=== PATIENT | female | born 1955 | race Caucasian/White ===

== ENCOUNTER 2016-08-14 11:44 | Day surgery (SDC) | payer OTHER ==
[2016-08-10 10:18] VITALS: BMI 34.3
[~2016-08-14 11:44] MED LIST: LACTATED RINGERS 1,000 ML IV SCH
[2016-08-14 12:31] VITALS: RESP 16; TEMP 97
[2016-08-14] MEDS ORDERED: LIDOCAINE 1% 20 ML VIAL (10MG/ML) FOR IV START INTRADERMA ONE (12:41)
[2016-08-14] MEDS ORDERED: PROPOFOL 10 MG/ML 20 ML VIAL IV ONE (13:24)
--- NOTE | 2016-08-14 13:56 | P.PCN ---
Date of Procedure: 08/14/16 Procedure(s) Performed: Procedure: 1. Esophagogastroduodenoscopy and biopsy. 2. Total colonoscopy. Preoperative diagnosis: Epigastric pain, history of polyps and change in bowel habits. Postoperative diagnosis: 1. Sliding hiatal hernia with no obvious esophagitis or complicated reflux disease. 2. Mild gastritis and duodenitis. 3. Sigmoid diverticulosis with no evidence of acute diverticulitis, strictures, polyps or cancer. Preparation: HalfLytely prep. Sedation: Was provided by anesthesia. Brief clinical history: The patient is a 60-year-old female who was evaluated in the office regarding chronic epigastric pain. She had history of ulcer and hiatal hernia in the past and had prior cholecystectomy in 2008. There is also history of polyps and the last colonoscopy was 3 years ago. The patient has been having alternating bowel movements for the last couple years. Procedure: With the patient on her left lateral decubitus position and after informed consent and adequate sedation, I passed the Olympus-GIF 160 video upper endoscope through the cricopharyngeus down the esophagus. GE junction was around 38 cm from the incisors and there was a 1-2 cm sliding hiatal hernia. The esophagus did not show any obvious erosions, ulcers, strictures or Delacruz's esophagus. The endoscope was then passed into the stomach which was insufflated with air and inspected in detail including the retroflex view in the cardia. There was some mottling and erythema in the antrum but no ulcers or erosions. Pyloric channel did not show any ulcers. Duodenal bulb showed erythema and friability but no ulcers or erosions. Similar findings were seen in the post bulbar area and descending duodenum. I obtained multiple biopsies from the duodenum, antrum and esophagus then the endoscope was withdrawn and I proceeded with the colonoscopy. Perianal area did not show any fissures or fistulas. There were no masses felt on digital rectal examination. The Olympus CFQ 160L video colonoscope was then inserted in the rectum in the usual fashion and advanced to the cecum. There were multiple diverticular orifices seen scattered in the sigmoid but I saw no evidence of acute diverticulitis or strictures. No polyps or tumors were seen. The mucosa appeared healthy. I retroflexed endoscope in the rectum before the endoscope was withdrawn. The patient tolerated the procedure well. Plan: The patient was reassured. Will await biopsy results and make further plans accordingly. With her history of polyps, I recommended repeat exam in 5 years. She will follow-up with you as planned.
[2016-08-14 14:38] VITALS: BP 112/68; PULSE 59
== END 2016-08-14 14:46 | disposition home or self-care (01) ==
LOC: ORWHC2ENDO 11:44
DX: K29.50 Unspecified chronic gastritis without bleeding (principal); K44.9 Diaphragmatic hernia without obstruction or gangrene; K57.30 Diverticulosis of large intestine without perforation or abscess without bleeding; K21.0 Gastro-esophageal reflux disease with esophagitis; K29.80 Duodenitis without bleeding; Z86.010 Personal history of colon polyps; I10 Essential (primary) hypertension; F32.9 Major depressive disorder, single episode, unspecified; Z79.899 Other long term (current) drug therapy; Z88.8 Allergy status to other drugs, medicaments and biological substances; Z86.73 Personal history of transient ischemic attack (TIA), and cerebral infarction without residual deficits
CPT/HCPCS: 88305; 88342; 45378; 43239; J2704; 99153

== ENCOUNTER → 2016-11-23 | Outpatient (CLI) | payer OTHER ==
--- NOTE | 2016-11-24 10:36 | US ---
EXAMINATION TYPE: Ultrasound MSK right foot DATE OF EXAM: 11/23/2016 COMPARISON: NONE CLINICAL HISTORY: 61-year-old female soft Tissue Mass Right Foot M77.91. Additional mobile engineer history: Patient states palpable mass on sole of rt foot x 2-3 yrs, never had looked at, first time at dr's for this, not really tender, but after dr pressing on has been more ten moshe. Technique: Multiple sonographic images along the plantar aspect of the right foot with particular att ention to the palpable site. FINDINGS: Along the plantar aspect of the right foot just proximal to the ball of the foot, there is an elongat ed, hypoechoic, ovoid lesion measuring 1.8 cm long by 0.3 cm thick by 1.5 cm wide. This elongates franchesca ng the plantar fascia. The plantar fascia is followed to the calcaneal attachment. No additional nodu larity is seen. The underlying musculature shows no gross abnormality. IMPRESSION: Focal fusiform thickening of the plantar fascia just proximal to the ball of the foot measuring 1.8 c m long and 1.5 cm wide. Findings suggest a plantar fibroma. Clinical correlation recommended.
== END | disposition home or self-care (01) ==
LOC: RADUSWWP 10:15
PROVIDERS: ATTEND Podiatrist Foot & Ankle Surgery
DX: R93.7 Abnormal findings on diagnostic imaging of other parts of musculoskeletal system (principal); R22.41 Localized swelling, mass and lump, right lower limb

== ENCOUNTER 2016-12-09 14:16 | Emergency (ER) | payer OTHER ==
[2016-12-09 14:23] VITALS: PULSE 66
--- NOTE | 2016-12-09 15:21 | ED ---
Skin/Abscess/FB HPI - General Chief complaint: Skin/Abscess/Foreign Body Stated complaint: Female -sent by [employer] Source: patient Mode of arrival: ambulatory Limitations: no limitations - History of Present Illness Initial comments: 7-year-old female presented for evaluation of pain and swelling to the right labia majora for the last 3 days. She states that she has had a rash in that area during the same time and that has caused some itching. The pain is at the upper aspect of her right labia majora without fluctuance or drainage. She denies any preceding trauma or discharge. She states that she has a similar rash underneath both breasts and she has been seen by her best worker for that but has not brought up the rash on her upper thighs/groin. Denies fevers, chills, nausea, vomiting, abdominal pain. Denies any other complaints or abnormalities. - Related Data Home Medications Medication Instructions Recorded Confirmed Lisinopril [Prinivil] 20 mg PO QAM 02/09/16 12/09/16 Sertraline HCl [Zoloft] 100 mg PO HS 02/09/16 12/09/16 amLODIPine BESYLATE [Norvasc] 10 mg PO HS 02/09/16 12/09/16 Omeprazole [PriLOSEC] 20 mg PO DAILY PRN 08/10/16 12/09/16 Cholecalciferol (Vitamin D3) 2,000 unit PO DAILY 12/09/16 12/09/16 [Vitamin D3] Naproxen Sodium [Aleve] 440 mg PO Q6H PRN 12/09/16 12/09/16 Pyridoxine HCl (Vitamin B6) 100 mg PO DAILY 12/09/16 12/09/16 [Vitamin B-6] Previous Rx's Medication Instructions Recorded Clindamycin [Cleocin] 450 mg PO Q6H #60 capsule 12/09/16 Allergies Allergy/AdvReac Type Severity Reaction Status Date / Time No Known Allergies Allergy Unverified 12/09/16 14:53 Review of Systems ROS Statement: Those systems with pertinent positive or pertinent negative responses have been documented in the HPI. ROS Other: All systems not noted in ROS Statement are negative. Constitutional: Denies: fever, chills Eyes: Denies: eye pain, eye discharge, vision change ENT: Denies: ear pain, throat pain Respiratory: Denies: cough, dyspnea Cardiovascular: Denies: chest pain, palpitations Endocrine: Denies: fatigue, polydipsia, polyuria Gastrointestinal: Denies: abdominal pain, nausea, vomiting Genitourinary: Denies: urgency, dysuria Musculoskeletal: Denies: back pain, arthralgia, myalgia Skin: Reports: rash, lesions. Denies: change in color Neurological: Denies: headache, weakness Psychiatric: Denies: anxiety, depression Hematological/Lymphatic: Denies: easy bleeding, easy bruising Past Medical History Past Medical History: CVA/TIA, GERD/Reflux, Hypertension, Skin Disorder Additional Past Medical History / Comment(s): freq diarrhea ,uterine polyps History of Any Multi-Drug Resistant Organisms: None Reported Past Surgical History: Appendectomy, Cholecystectomy, Tubal Ligation Additional Past Surgical History / Comment(s): COLONOSCOPY AND EGD Past Anesthesia/Blood Transfusion Reactions: No Reported Reaction Past Psychological History: Anxiety, Depression Smoking Status: Former smoker - Past Family History Father Additional Family Medical History / Comment(s): heart aneurysm Mother Family Medical History: Liver Disease, Myocardial Infarction ([place]) General Exam Limitations: no limitations General appearance: alert, in no apparent distress Head exam: Present: atraumatic, normocephalic, normal inspection Eye exam: Present: normal appearance, PERRL, EOMI. Absent: scleral icterus, conjunctival injection, periorbital swelling ENT exam: Present: normal exam, mucous membranes moist Neck exam: Present: normal inspection. Absent: tenderness, meningismus, lymphadenopathy Respiratory exam: Present: normal lung sounds bilaterally. Absent: respiratory distress, wheezes, rales, rhonchi, stridor Cardiovascular Exam: Present: regular rate, normal rhythm, normal heart sounds. Absent: systolic murmur, diastolic murmur, rubs, gallop, clicks GI/Abdominal exam: Present: soft, normal bowel sounds. Absent: distended, tenderness, guarding, rebound, rigid Rectal exam: Present: deferred External exam: Present: erythema, swelling, lesions. Absent: lacerations, ecchymosis Extremities exam: Present: normal inspection, full ROM, normal capillary refill. Absent: tenderness, pedal edema, joint swelling, calf tenderness Back exam: Present: normal inspection Neurological exam: Present: alert, oriented X3, CN II-XII intact Psychiatric exam: Present: normal affect, normal mood Skin exam: Present: warm, dry, intact, normal color. Absent: rash Course Vital Signs 12/09/16 14:19 Temperature 97.1 F L Pulse Rate 66 Respiratory 18 Rate Blood Pressure 137/70 O2 Sat by Pulse 96 Oximetry Medical Decision Making - Medical Decision Making 61-year-old female presented for evaluation of pain to the right labia majora as well as a rash to bilateral groins. On physical examination she does appear to have a cellulitis to the right labia majora without any fluctuance or the tender area coming to a head. At this point there appears to be no indication for incision and drainage and we'll provide patient with a prescription for oral antibiotics and to follow-up with her primary care physician or her STUDY DIRECTOR, which ever one is available first. She states that she has clotrimazole cream at home for the similar rash underneath her breasts and she will continue to use that on her groins. She was advised to make appointments Sunday morning but if her symptoms should worsen or persist return to this facility for further treatment and evaluation. The patient acknowledged an understanding of this information and agreed with this plan of care. Disposition Clinical Impression: Cellulitis of labia majora, Tinea cruris Disposition: HOME SELF-CARE Condition: Stable Instructions: Abscess Incision and Drainage (ED), Jock Itch (ED), Abscess (ED) Additional Instructions: Please use medication as discussed. Please follow up with family doctor if symptoms have not improved over the next two days. Please return to the emergency room if your symptoms increase or worsen or for any other concerns. Prescriptions: Clindamycin [Cleocin] 450 mg PO Q6H #60 capsule Referrals: Maria L Ambrocio MD [Primary Care Provider] - 1-2 days Time of Disposition: 15:22
[2016-12-09 15:31] VITALS: BP 133/72; RESP 20; TEMP 97.6
== END 2016-12-09 15:31 | disposition home or self-care (01) ==
LOC: EC 14:16
DX: N76.2 Acute vulvitis (principal); B35.6 Tinea cruris; K21.9 Gastro-esophageal reflux disease without esophagitis; I10 Essential (primary) hypertension; F32.9 Major depressive disorder, single episode, unspecified; F41.9 Anxiety disorder, unspecified; Z87.891 Personal history of nicotine dependence; Z79.899 Other long term (current) drug therapy
CPT/HCPCS: 99283

== ENCOUNTER → 2018-05-17 | Outpatient (CLI) | payer OTHER ==
--- NOTE | 2018-05-17 13:44 | XR ---
EXAMINATION TYPE: XR chest 2V DATE OF EXAM: 05/17/2018 COMPARISON: 10/22/2015 TECHNIQUE: PA and lateral views submitted. HISTORY: Chronic pain FINDINGS: The lungs are clear and there is no pneumothorax, pleural effusion, or focal pneumonia. Atheroscler otic change of the aorta. Hypertrophic and degenerative change of the spine. No overt failure. IMPRESSION: 1. No acute process.
--- NOTE | 2018-05-17 13:46 | XR ---
EXAM TYPE: LUMBAR SPINE X RAY SERIES COMPARISON: NONE HISTORY: Pain TECHNIQUE: 4 views are submitted. FINDINGS: Alignment is anatomic. The pedicles are intact. The transverse processes are intact. There is no s pondylolysis or spondylolisthesis. Hypertrophic and degenerative changes of the vertebral column. Se lizz degenerative disc disease L4-5 and L5-S1 with moderate changes at L3-L4. Multilevel facet arthro sj. Atherosclerotic change of the vasculature. Surgical clips in the right upper quadrant are note d. IMPRESSION: 1. Multilevel degenerative disc disease with severe changes at L4-5 and L5-S1.
--- NOTE | 2018-05-17 13:51 | XR ---
EXAMINATION TYPE: XR thoracic spine 2V DATE OF EXAM: 05/17/2018 COMPARISON: NONE HISTORY: Pain Alignment is anatomic. There is no compression deformities. Multilevel hypertrophic and degenerative disc disease. No compression deformities. Curvature the spine noted. IMPRESSION: 1. Multilevel degenerative disc disease.
== END | disposition home or self-care (01) ==
LOC: RADXRMAIN 12:52
PROVIDERS: ATTEND Family Medicine
DX: M51.37 Other intervertebral disc degeneration, lumbosacral region (principal); M51.34 Other intervertebral disc degeneration, thoracic region; G89.29 Other chronic pain
CPT/HCPCS: 71046; 72070; 72110

== ENCOUNTER → 2019-01-23 | Outpatient (CLI) | payer OTHER ==
--- NOTE | 2019-01-23 16:12 | XR ---
Right hip and right femur HISTORY: Hip pain 2 views of the right hip and 2 views of the right femur are submitted on a total of 6 images There are some calcifications present at the level of the origins of the hamstring musculature which may be due to chronic tear. Bone mineralization is mildly reduced. Alignment and joint spaces are anibal ntained. No fracture or dislocation. Degenerative disc change incidentally noted at the lumbosacral j unction. IMPRESSION: Degenerative disc disease lumbosacral spine. No significant abnormality noted of the hip or right femur. Possible chronic hamstring musculature tear.
--- NOTE | 2019-01-23 16:18 | XR ---
Left hip and left femur HISTORY: Bilateral hip pain 2 views of the left hip and 2 views of left femur submitted on a total of 5 images. Bone mineralization slightly reduced, joint spaces and alignment are maintained. No fracture or dislo cation. IMPRESSION: No significant abnormality.
== END | disposition home or self-care (01) ==
LOC: RADXRMAIN 11:15
PROVIDERS: ATTEND Family Medicine
DX: M51.37 Other intervertebral disc degeneration, lumbosacral region (principal); M25.552 Pain in left hip; M25.551 Pain in right hip
CPT/HCPCS: 73502

== ENCOUNTER 2020-01-24 10:53 | Emergency (ER) | payer OTHER ==
[2020-01-24] MEDS ORDERED: HYDROcodone/APAP 5-325MG 1 EACH TAB PO STA (11:18)
--- NOTE | 2020-01-24 11:21 | ED ---
Fall HPI - General Chief Complaint: Fall Stated Complaint: fall, rt arm injury Time Seen by Provider: 01/24/20 11:00 Source: patient Mode of arrival: ambulatory - History of Present Illness Initial Comments: 64-year-old male presents today for chief complaint of fall patient states that she tripped falling backwards striking mostly her right arm as she attempted to catch herself she states she did hit the back of her head which she states is upper part she does not endorse any neck pain or headaches. Patient states she was worried about the head or neck she states she does not take any anticoagulation therapy and did not lose consciousness. Patient denies any nausea vomiting visual changes she has any injury to the chest abdomen back or lower extremities. Patient denies any left upper extremity injury patient states majority of her pain is at the right elbow and just distal to the elbow. Patient denies any numbness tingling loss of sensation coolness or pallor of the extremity. Patient states she is able to slightly range at the right elbow. Denies abrasions or lacerations. Patient has no additional complaints. Upon arrival patient appears uncomfortable is splinting the right arm. - Related Data Home Medications Medication Instructions Recorded Confirmed Sertraline HCl [Zoloft] 100 mg PO HS 02/09/16 12/09/16 amLODIPine BESYLATE [Norvasc] 10 mg PO HS 02/09/16 12/09/16 lisinopriL [Prinivil] 20 mg PO QAM 02/09/16 12/09/16 Omeprazole [PriLOSEC] 20 mg PO DAILY PRN 08/10/16 12/09/16 Cholecalciferol (Vitamin D3) 2,000 unit PO DAILY 12/09/16 12/09/16 [Vitamin D3] Naproxen Sodium [Aleve] 440 mg PO Q6H PRN 12/09/16 12/09/16 Pyridoxine HCl (Vitamin B6) 100 mg PO DAILY 12/09/16 12/09/16 [Vitamin B-6] Previous Rx's Medication Instructions Recorded Clindamycin [Cleocin] 450 mg PO Q6H #60 capsule 12/09/16 Allergies Allergy/AdvReac Type Severity Reaction Status Date / Time No Known Allergies Allergy Unverified 01/24/20 10:53 Review of Systems ROS Statement: Those systems with pertinent positive or pertinent negative responses have been documented in the HPI. ROS Other: All systems not noted in ROS Statement are negative. Past Medical History Past Medical History: CVA/TIA, GERD/Reflux, Hypertension, Skin Disorder Additional Past Medical History / Comment(s): freq diarrhea ,uterine polyps History of Any Multi-Drug Resistant Organisms: None Reported Past Surgical History: Appendectomy, Cholecystectomy, Tubal Ligation Additional Past Surgical History / Comment(s): COLONOSCOPY AND EGD Past Anesthesia/Blood Transfusion Reactions: No Reported Reaction Past Psychological History: Anxiety, Depression Smoking Status: Former smoker Past Alcohol Use History: None Reported Past Drug Use History: None Reported - Past Family History Father Additional Family Medical History / Comment(s): heart aneurysm Mother Family Medical History: Liver Disease, Myocardial Infarction ([place]) General Exam - General Exam Comments Initial Comments: General: The patient is awake and alert, in no distress Eye: Pupils are equal, round and reactive to light, extra-ocular movements are intact. No nystagmus. There is normal conjunctiva bilaterally. No signs of icterus. Ears, nose, mouth and throat: There are moist mucous membranes and no oral lesions. No raccoon or Sandoval sign Neck: The neck is supple, there is no tenderness or JVD. No midline tenderness to palpation of the cervical spine full range of motion cervical spine without endorsing any discomfort Cardiovascular: There is a regular rate and rhythm. No murmur, rub or gallop is appreciated. Respiratory: Lungs are clear to auscultation, respirations are non-labored, breath sounds are equal. No wheezes, stridor, rales, or rhonchi. Gastrointestinal: Soft, non-distended, non-tender abdomen without masses or organomegaly noted. There is no rebound or guarding present Musculoskeletal: Normal inspection of the cervicothoracic and lumbar spine no midline tenderness to palpation or paravertebral. Upon inspection of the elbow bilaterally there is no significant soft tissue swelling or gross deformity. No abrasions or lacerations. Patient is able to slightly range of the right elbow however this is limited secondary to pain full range of motion at the shoulder and wrist and fingers of the right hand she is able to make the okay fingers crossed thumbs-up sign no evidence of wristdrop. Compartments are soft and compressible the forearm and upper arm. Sensation intact proximal and distal to injury site Radial pulses equal bilaterally 2+. Neurological: A&O x 3. CN II-XII intact, There are no obvious motor or sensory deficits. Coordination appears grossly intact. Speech is normal. Skin: Skin is warm and dry and no rashes or lesions are noted. No scalp hematomas are appreciated Psychiatric: Cooperative, appropriate mood & affect, normal judgment. Limitations: no limitations Course Vital Signs 01/24/20 01/24/20 10:54 12:05 Temperature 97.7 F 97.3 F L Pulse Rate 79 68 Respiratory 16 18 Rate Blood Pressure 168/79 137/79 O2 Sat by Pulse 96 97 Oximetry Medical Decision Making - Medical Decision Making Imaging studies revealed a radial head fracture with a joint effusion. Patient was placed in a posterior mold splint and sling. She was neurovascular intact both prior to and after splinting with synthetic pre-padded splinting material and Jerod bandage. The splint was applied to the right upper extremity. Patient is no additional complaints denying neck pain or headaches. She be discharged with instruction to follow-up with orthopedic surgery and monitor for increasing pain or decreased sensation or strength of the hands. Patient agreeable to care plan and discharge. Imaging center personnel reviewed as well as reviewed by my attending provider Dr. Dodson Disposition Clinical Impression: Radial head fracture, Joint effusion, Fall, Right elbow pain Disposition: HOME SELF-CARE Condition: Good Instructions (If sedation given, give patient instructions): Elbow Fracture (ED) Additional Instructions: Please use medication as discussed. Please follow-up with Dr. Guevara in next week, use sling and keep splint in place. Please return to emergency room if the symptoms increase or worsen or for any other concerns. Is patient prescribed a controlled substance at d/c from ED?: No Referrals: Maria L Ambrocio MD [Primary Care Provider] - 1-2 days Hamilton Bui DO [Doctor of Osteopathic Medicine] - 1-2 days Time of Disposition: 11:47
--- NOTE | 2020-01-24 11:37 | XR ---
EXAMINATION TYPE: XR forearm RT DATE OF EXAM: 01/24/2020 COMPARISON: NONE HISTORY: Pain Two views of the forearm demonstrate fracture of the radial head extending to the articular surface w ith pathologic joint effusion. Remaining osseous structures intact. IMPRESSION: 1. Radial head fracture.
--- NOTE | 2020-01-24 11:38 | XR ---
EXAMINATION TYPE: XR elbow complete RT DATE OF EXAM: 01/24/2020 COMPARISON: NONE HISTORY: Pain FINDINGS: Three views of the elbow demonstrate a pathologic joint effusion. There is a impacted fracture of the radial head. IMPRESSION: 1. Intra-articular impacted fracture of the radial head with pathologic joint effusion.
[2020-01-24 12:05] VITALS: BP 137/79; PULSE 68; RESP 18; TEMP 97.3
== END 2020-01-24 12:08 | disposition home or self-care (01) ==
LOC: EC 10:53
DX: S52.121A Displaced fracture of head of right radius, initial encounter for closed fracture (principal); M25.40 Effusion, unspecified joint; F41.9 Anxiety disorder, unspecified; F32.9 Major depressive disorder, single episode, unspecified; I10 Essential (primary) hypertension; K21.9 Gastro-esophageal reflux disease without esophagitis; Z79.899 Other long term (current) drug therapy; Z86.73 Personal history of transient ischemic attack (TIA), and cerebral infarction without residual deficits; W01.10XA Fall on same level from slipping, tripping and stumbling with subsequent striking against unspecified object, initial encounter; Y93.K1 Activity, walking an animal; Y92.89 Other specified places as the place of occurrence of the external cause
CPT/HCPCS: 29125; 99283

== ENCOUNTER → 2020-03-09 | Outpatient (CLI) | payer OTHER ==
--- NOTE | 2020-03-09 16:30 | MR ---
EXAMINATION TYPE: MR lumbar spine wo con DATE OF EXAM: 03/09/2020 COMPARISON: Lumbar spine x-ray May 17, 2018 HISTORY: Lumbar disc disease per order. Back pain into right lower extremity per patient. TECHNIQUE: Multiplanar, multisequence imaging of the lumbar spine is performed without IV contrast. FINDINGS: Sagittal images of the lumbar spine show vertebral body heights and alignment to remain sat isfactory. Multilevel disc desiccation. Moderate to advanced disc space narrowing with heterogeneous Modic type II endplate changes L4-L5 and L5-S1 levels. [id number] multilevel anterior spurring. The conus medullaris is normal in position and signal ending at mid L1 level. Axial images show T12-L1 level to appear within normal limits. Axial images at the L1-L2 level show mild broad disc bulge minimally effacing the anterior thecal sac . Axial images at the L2-L3 level show moderate broad disc bulge with right paracentral disc protrusion component effacing the anterior thecal sac. Mild right-sided anterior inferior neural foraminal narr owing. Axial images at the L3-L4 level show mild facet degenerative changes and ligamentum flavum hypertroph y. There is mild to moderate broad-based disc bulge effacing the anterior thecal sac. There is left g reater than right foraminal disc protrusion component. There is moderate bilateral inferior neural fo raminal narrowing left more prominent than right. Axial images at the L4-L5 level show mild to moderate facet degenerative changes bilaterally. There i s mild broad-based posterior disc protrusion mildly effacing the anterior thecal sac. There is modera te to severe left-sided neural foraminal narrowing. There is mild right-sided neural foraminal narrow ing. Encroachment anterior margin left L4 nerve fell present sagittal image 2 and axial image 8. Axial images at the L5-S1 level show moderate right greater than left facet degenerative changes bila terally. There is moderate broad disc bulge with central disc protrusion component. There is mild eff acement anterior thecal sac. There is mild to moderate bilateral neural foraminal narrowing, right gr eater than left. Encroachment right L5 nerve is present sagittal image 12 and axial image 3. No suspicious retroperitoneal findings. Paraspinal muscle bulk is preserved. Sigmoid colonic divertic kilo are suspected. IMPRESSION: Multilevel degenerative changes greatest in the mid to lower lumbar spine as detailed abo ve. Suspect exiting right L5 nerve encroachment at L5-S1 level.
--- NOTE | 2020-03-09 16:35 | MR ---
EXAMINATION TYPE: MR hip RT wo con DATE OF EXAM: 03/09/2020 COMPARISON: Left hip x-ray January 23, 2019. HISTORY: Low back and right hip pain. Lumbar disc disease per order. Standard multiplanar, multisequence MRI departmental protocol Multiplanar, multisequence images of the pelvis were acquired. Imaging is performed focusing on right hip. FINDINGS: [id number] axial joint space loss of both hips is present. There are small to moderat e size symmetric bilateral hip joint effusions. No significant spurring bilaterally. Bone marrow sign al intensity is preserved. No suspicious edema. No serpiginous low T1 signal to suggest avascular nec rosis. Femoral head shapes are maintained bilaterally. Increased fluid signal over the greater trochanters bilaterally, right is more prominent than left ex tending anteriorly. No suspicious groin hernia bilaterally. No suspicious groin adenopathy. Muscle bu lk and bilateral thighs is symmetric and felt within normal limits. Diverticula throughout the sigmoid colon is confirmed. Uterus is anteverted in shape extending to rig ht of midline. Suspect 7 mm submucosal fibroid coronal image 7. No concerning pelvic fluid collection or adenopathy. IMPRESSION: Moderate degenerative changes in right hip fairly symmetric drops of left hip. Asymmetric moderate to severe right-sided greater trochanteric bursitis.
== END | disposition home or self-care (01) ==
LOC: RADMRIMAIN 14:44
PROVIDERS: ATTEND Family Medicine
DX: M47.816 Spondylosis without myelopathy or radiculopathy, lumbar region (principal); M47.817 Spondylosis without myelopathy or radiculopathy, lumbosacral region; M16.11 Unilateral primary osteoarthritis, right hip; M70.61 Trochanteric bursitis, right hip
CPT/HCPCS: 72148

== ENCOUNTER → 2020-05-19 | Outpatient (CLI) | payer OTHER ==
--- NOTE | 2020-05-19 16:03 | MR ---
EXAMINATION TYPE: MR brain wo/w con DATE OF EXAM: 05/19/2020 COMPARISON: Previous MRI brain 01/22/2012 HISTORY: Headache, lightheaded, falls. TECHNIQUE: Multiplanar, multisequence images of the brain and brainstem is performed without and with IV contras t, utilizing 9.5 mL intravenous Gadavist . FINDINGS: Diffusion weighted images demonstrate no evidence of a recent infarct or other diffusion ab normality. There is no extra-axial fluid collection. Some periventricular white matter hyperintensi ties again noted as on prior, some scattered hyperintensities within the subcortical, pericallosal an d periventricular white matter have progressed as compared to prior exam, there are 40-50 lesions pre sent. Cortical atrophy is present. The ventricular system and cisternal spaces are normal in size and appearance. The brain volume is age appropriate. Midline structures demonstrate stable morphology. The craniocervical junction appears within normal limits. Post contrast images demonstrate no abnormal enhancement. The dural venous sinuses appear pa tent. The visualized sinuses are clear and the globes are intact. IMPRESSION: Nonspecific white matter demyelination, age related atrophy
--- NOTE | 2020-05-20 09:36 | US ---
EXAMINATION TYPE: US carotid duplex BILAT DATE OF EXAM: 05/19/2020 COMPARISON: NONE CLINICAL HISTORY: R55 pre syncope. frequent falls, dizziness, headaches, history of stenosis EXAM MEASUREMENTS: RIGHT: Peak Systolic Velocity (PSV) cm/sec ----- Right CCA: 72.5 ----- Right ICA: 102.0 ----- Right ECA: 65.1 ICA/CCA ratio: 1.4 RIGHT: End Diastole cm/sec ----- Right CCA: 21.4 ----- Right ICA: 30.4 ----- Right ECA: 7.5 LEFT: Peak Systolic Velocity (PSV) cm/sec ----- Left CCA: 76.4 ----- Left ICA: 186.0 ----- Left ECA: 107.0 ICA/CCA ratio: 2.4 LEFT: End Diastole cm/sec ----- Left CCA: 19.3 ----- Left ICA: 57.5 ----- Left ECA: 9.8 VERTEBRALS (direction of flow): Right Vertebral: Antegrade Left Vertebral: Antegrade Rhythm: Normal Grayscale, color Doppler, spectral Doppler imaging performed of the carotid arteries. Waveform analys is shows hemodynamic significant stenosis of the proximal internal carotid artery on the left. There is some tortuosity present. There is spectral broadening, loss of the systolic window. Moderate plaqu e bilateral bifurcations. Increased velocities left ICA IMPRESSION: Hemodynamic significant stenosis of the proximal internal carotid artery in the left cor responding to approximately 50-69% diameter reduction by Doppler criteria, an indirect measurement of carotid stenosis Criteria for Assigning % of Stenosis / Diameter reduction (Estimation based on the indirect measurements of the internal carotid artery velocities (ICA PSV). 1. Normal (no stenosis)=ICA PSV < 125 cm/s: ratio < 2.0: ICA EDV<40 cm/s. 2. Less than 50% stenosis=ICA PSV < 125 cm/s: ratio < 2.0: ICA EDV<40 cm/s. 3. 50 to 69% stenosis=ICA PSV of 125 to 230 cm/s: ration 2.0 ? 4.0: ICA EDV 40-100 cm/s. 4. Greater than 70% stenosis to near occlusion= ICA PSV > 230 cm/s: ratio > 4.0: ICA EDV > 100 cm/s. 5. Near occlusion= ICA PSV velocities may be low or undetectable: variable ratio and ICA EDV. 6. Total occlusion=unable to detect flow.
== END | disposition home or self-care (01) ==
LOC: RADMRIMAIN 14:28
PROVIDERS: ATTEND Family Medicine
DX: G31.1 Senile degeneration of brain, not elsewhere classified (principal); G37.8 Other specified demyelinating diseases of central nervous system; I65.22 Occlusion and stenosis of left carotid artery
CPT/HCPCS: 93880; 70553; A9585

== ENCOUNTER 2020-09-10 16:25 | Emergency (ER) | payer OTHER ==
--- NOTE | 2020-09-10 16:39 | ED ---
Recheck HPI - General Chief Complaint: Recheck/Abnormal Lab/Rx Stated Complaint: COVID+ Source: patient, RN notes reviewed Mode of arrival: ambulatory Limitations: no limitations - History of Present Illness Initial Comments: Patient is a 63-year-old female that presents to emergency department with Covid. She recently tested positive on 09/10/2020. She was sent here by her [facility] to get monoclonal antibody therapy. She did state that she does have a cough headache and generalized muscle aches and pains. She denied any other complaints or issues will sitting up in bed during exam and interview. She denied any chest pain shortness of breath nausea vomiting diarrhea constipation fever fatigue chills. - Related Data Home Medications Medication Instructions Recorded Confirmed Sertraline HCl [Zoloft] 100 mg PO HS 02/09/16 12/09/16 amLODIPine BESYLATE [Norvasc] 10 mg PO HS 02/09/16 12/09/16 lisinopriL [Prinivil] 20 mg PO QAM 02/09/16 12/09/16 Omeprazole [PriLOSEC] 20 mg PO DAILY PRN 08/10/16 12/09/16 Cholecalciferol (Vitamin D3) 2,000 unit PO DAILY 12/09/16 12/09/16 [Vitamin D3] Naproxen Sodium [Aleve] 440 mg PO Q6H PRN 12/09/16 12/09/16 Pyridoxine HCl (Vitamin B6) 100 mg PO DAILY 12/09/16 12/09/16 [Vitamin B-6] Previous Rx's Medication Instructions Recorded Clindamycin [Cleocin] 450 mg PO Q6H #60 capsule 12/09/16 Allergies Allergy/AdvReac Type Severity Reaction Status Date / Time No Known Allergies Allergy Unverified 01/24/20 10:53 Review of Systems ROS Statement: Those systems with pertinent positive or pertinent negative responses have been documented in the HPI. ROS Other: All systems not noted in ROS Statement are negative. Past Medical History Past Medical History: CVA/TIA, GERD/Reflux, Hypertension, Skin Disorder Additional Past Medical History / Comment(s): freq diarrhea ,uterine polyps History of Any Multi-Drug Resistant Organisms: None Reported Past Surgical History: Appendectomy, Cholecystectomy, Tubal Ligation Additional Past Surgical History / Comment(s): COLONOSCOPY AND EGD Past Anesthesia/Blood Transfusion Reactions: No Reported Reaction Past Psychological History: Anxiety, Depression Smoking Status: Former smoker Past Alcohol Use History: None Reported Past Drug Use History: None Reported - Past Family History Father Additional Family Medical History / Comment(s): heart aneurysm Mother Family Medical History: Liver Disease, Myocardial Infarction ([place]) General Exam Limitations: no limitations General appearance: alert, in no apparent distress, obese Head exam: Present: atraumatic, normocephalic, normal inspection Eye exam: Present: normal appearance, PERRL, EOMI. Absent: scleral icterus, conjunctival injection, periorbital swelling ENT exam: Present: normal exam, mucous membranes moist Neck exam: Present: normal inspection. Absent: tenderness, meningismus, lymphadenopathy Respiratory exam: Present: normal lung sounds bilaterally. Absent: respiratory distress, wheezes, rales, rhonchi, stridor Cardiovascular Exam: Present: regular rate, normal rhythm, normal heart sounds. Absent: systolic murmur, diastolic murmur, rubs, gallop, clicks GI/Abdominal exam: Present: soft, normal bowel sounds. Absent: distended, ten derness, guarding, rebound, rigid Extremities exam: Present: normal inspection, full ROM, normal capillary refill. Absent: tenderness, pedal edema, joint swelling, calf tenderness Neurological exam: Present: alert, oriented X3, CN II-XII intact Psychiatric exam: Present: normal affect, normal mood Skin exam: Present: warm, dry, intact, normal color. Absent: rash Course Vital Signs 09/10/20 09/10/20 16:27 17:43 Temperature 98.4 F 99.2 F Pulse Rate 101 H 91 Respiratory 19 18 Rate Blood Pressure 151/83 185/84 O2 Sat by Pulse 94 L 95 Oximetry Medical Decision Making - Medical Decision Making 63-year-old female that Covid positive with 1 day of symptoms. Monoclonal antibody therapy ordered. Patient educated on risks first benefits. Chest x-ray negative for any acute cardiopulmonary process. Case discussed with Dr. Schwartz, patient can discharge home after monoclonal antibody therapy. - Radiology Data Radiology results: report reviewed, image reviewed Chest x-ray: No acute cardiopulmonary process. Disposition Clinical Impression: COVID-19 Disposition: HOME SELF-CARE Condition: Stable Instructions (If sedation given, give patient instructions): Coronavirus Disease 2019 (COVID-19) Additional Instructions: Please return to the Emergency Department if symptoms worsen or any other concerns. Follow-up with primary care in 5-7 days. Continue to rest, increase oral fluid, eat well. Can use [id number] anti-inflammatories for symptomatic management. Is patient prescribed a controlled substance at d/c from ED?: No Referrals: Maria L Ambrocio MD [Primary Care Provider] - 1-2 days Time of Disposition: 18:25
--- NOTE | 2020-09-10 17:34 | XR ---
EXAMINATION TYPE: XR chest 2V DATE OF EXAM: 09/10/2020 COMPARISON: 05/17/2018. HISTORY: Shortness of breath. TECHNIQUE: Frontal and lateral views of the chest are obtained. FINDINGS: There is no focal air space opacity, pleural effusion, or pneumothorax seen. The cardiac silhouette size is within normal limits. The osseous structures are intact. IMPRESSION: No acute cardiopulmonary process.
[2020-09-10] MEDS ORDERED: BAMLANIVIMAB 700 MG in SODIUM CHLORIDE 0.9% 50 ML IVPB ONE (18:00)
[2020-09-10 19:07] VITALS: BP 155/89; PULSE 88; RESP 20; TEMP 98.6
== END 2020-09-10 19:07 | disposition home or self-care (01) ==
LOC: EC 16:25
DX: U07.1 COVID-19 (principal); K21.9 Gastro-esophageal reflux disease without esophagitis; I10 Essential (primary) hypertension; F41.9 Anxiety disorder, unspecified; F32.9 Major depressive disorder, single episode, unspecified; Z87.891 Personal history of nicotine dependence; Z90.49 Acquired absence of other specified parts of digestive tract; Z98.890 Other specified postprocedural states; Z86.73 Personal history of transient ischemic attack (TIA), and cerebral infarction without residual deficits; Z79.899 Other long term (current) drug therapy
CPT/HCPCS: 71046; 99283; 96365; Q0239

== ENCOUNTER → 2021-02-14 | Outpatient (CLI) | payer OTHER ==
--- NOTE | 2021-02-14 09:28 | US ---
EXAMINATION TYPE: US pelvic complete DATE OF EXAM: 02/14/2021 COMPARISON: NONE CLINICAL HISTORY: N95.0 POSTMENOPAUSAL BLEEDING. Patient states having one episode of PMB. No pain. TECHNIQUE: Transabdominal (TA). Transabdominal sonographic images of the pelvis were acquired. Date of LMP: PMB, EXAM MEASUREMENTS: Uterus: 6.9 x 3.9 x 2.6 cm Endometrial Stripe: 0.2 cm Right Ovary: 1.7 x 1.5 x 1.4 cm Left Ovary: 2.4 x 1.2 x 1.2 cm 1. Uterus: Anteverted Heterogenous. Anterior mid echogenic lesion = 1.0 x 0.9 x 0.9 cm 2. Endometrium: wnl 3. Right Ovary: wnl 4. Left Ovary: wnl 5. Bilateral Adnexa: wnl 6. Posterior cul-de-sac: trace amount of free fluid IMPRESSION: Echogenic uterine lesion. Trace free fluid.
== END | disposition home or self-care (01) ==
LOC: RADUSWWP 09:01
PROVIDERS: ATTEND Family Medicine
DX: N85.9 Noninflammatory disorder of uterus, unspecified (principal)
CPT/HCPCS: 76856

== ENCOUNTER → 2021-11-22 | Outpatient (CLI) | payer MEDICARE, OTHER ==
--- NOTE | 2021-11-23 04:45 | MR ---
EXAMINATION TYPE: MR brain wo/w con DATE OF EXAM: 11/22/2021 COMPARISON: 05/19/2020 HISTORY: Dizziness, lightheadedness. CONTRAST: Standard multiplanar, multisequence MRI departmental protocol images were obtained without contrast a nd with 8.5 mL intravenous Gadavist gadolinium contrast. Ventricles have fairly normal size. There is no mass effect or midline shift. No evidence of an acute infarct on the diffusion images. No evidence of intracranial hemorrhage. On the T2 and FLAIR images there are patchy areas of increased signal in the periventricular white matter. There is more noticea ble involvement of the left internal capsule with areas that measure up to 8 mm. Total number of lesi ons is approximately 25. There is some mild increased signal in the central marisol that measures 1.8 cm. Sella turcica appears normal. No evidence of orbital mass. The cerebellum is intact. The contrast images show no pathologic enhancement. There is normal enhancement of the venous sinuses . IMPRESSION: Multiple areas of increased signal in both cerebral hemispheres as well as the brainstem could relate to demyelinating disease or microvascular ischemia and appear not significantly different than last exam. No evidence of any significant new lesion. No cortical infarct.
== END | disposition home or self-care (01) ==
LOC: RADMRIMAIN 14:31
PROVIDERS: ATTEND Family Medicine
DX: R42 Dizziness and giddiness (principal)
CPT/HCPCS: 70553; A9585

== ENCOUNTER → 2022-04-25 | Outpatient (CLI) | payer MEDICARE, OTHER ==
--- NOTE | 2022-04-25 15:01 | US ---
EXAMINATION TYPE: US abdomen complete DATE OF EXAM: 04/25/2022 COMPARISON: NONE CLINICAL HISTORY: R10.13 EPIGASTRIC PAIN. epigastric pain, cholecystectomy TECHNIQUE: Multiple sonographic images of the abdomen are obtained. FINDINGS: EXAM MEASUREMENTS: Liver Length: 16.2 cm Gallbladder Wall: Surgically absent CBD: 1.1 cm Spleen: 12.6 cm Right Kidney: 10.9 x 5.4 x 3.8 cm Left Kidney: 11.1 x 4.3 x 5.5 cm Pancreas: Obscured by bowel gas Liver: attenuating Gallbladder: Surgically absent Evidence for sonographic Pedro's sign: no CBD: wnl Spleen: wnl Right Kidney: no evidence of hydronephrosis Left Kidney: no evidence of hydronephrosis Upper IVC: wnl Abd Aorta: calcifications noted. distal upper limits of normal = 2.9cm IMPRESSION: Mild fatty infiltration of the liver.
--- NOTE | 2022-04-26 08:12 | MM ---
Reason for Exam: Screening (asymptomatic). Last mammogram was performed 2 year(s) and 2 month(s) ago. Patient History: Menarche at age 15. First Full-Term at age 17. Postmenopausal. Risk Values: Domonique 5 year model risk: 1.1%. NCI Lifetime model risk: 4.2%. Prior Study Comparison: 12/24/2008 Bilateral Screening Mammogram, [facility]. 02/23/2015 Screening Mammogram, Unknown. 03/10/2020 Bilateral Screening Mammogram, [facility]. Tissue Density: There are scattered fibroglandular densities. Findings: Analyzed By CAD. There is no suspicious group of microcalcifications or new suspicious mass in either breast. Overall Assessment: Benign, BI-RAD 2 Management: Screening Mammogram of both breasts in 1 year. A clinical breast exam by your physician is recommended on an annual basis and results should be correlated with mammographic findings. Electronically signed and approved by: Freeman Rotmhan M.D. Radiologis
== END | disposition home or self-care (01) ==
LOC: RADUSWWP 10:03
PROVIDERS: ATTEND Family Medicine
DX: Z12.31 Encounter for screening mammogram for malignant neoplasm of breast (principal); K76.0 Fatty (change of) liver, not elsewhere classified; Z78.0 Asymptomatic menopausal state
CPT/HCPCS: 76700; 77063; 77067

== ENCOUNTER → 2022-12-04 | Outpatient (CLI) | payer MEDICARE ==
--- NOTE | 2022-12-04 21:00 | MR ---
EXAMINATION TYPE: MR brain wo/w con DATE OF EXAM: 12/04/2022 4:35 PM CLINICAL INDICATION:Female, 67 years old with history of R42; PAIN IN BACK OF HEAD AND DIZZINESS COMPARISON: 05/19/2020 TECHNIQUE: Multi planar, multi sequence imaging was performed through the brain including: T1, T2, In version recovery, susceptibility weighted imaging and gradient echo imaging and Diffusion weighted im aging. The patient was then given intravenous contrast and multi planar, T1 fat-saturation images wer e obtained. IV Contrast: 9ML cc Gadavist FINDINGS: Remote left basal ganglia injury present with blooming artifact compatible with hemosiderin deposition. The lin-white junctions, ventricular system, basal cisterns appear unremarkable. Diffus ion-weighted imaging shows no evidence of restricted diffusion to suggest acute/subacute infarct. Int racranial arterial flow voids are maintained. Midline structures show no abnormality. Scattered foci of high T2 signal intensity are seen within the periventricular white matter. After administration of gadolinium, no abnormal enhancement is seen. The bone marrow signal is within normal limits. Paranasal sinuses and mastoid air cells: No significant paranasal sinus disease. Visualized orbits: Orbital contents are intact. IMPRESSION: Overall stable exam from priors. 1. No evidence of intracranial mass, acute/subacute infarct, or abnormal enhancement. 2. Remote left basal ganglia injury. Stable back to 2019. 3. Nonspecific white matter changes, likely related to small vessel ischemic disease
== END | disposition home or self-care (01) ==
LOC: RADMRIMAIN 15:37
PROVIDERS: ATTEND Family Medicine
DX: R90.82 White matter disease, unspecified (principal); R42 Dizziness and giddiness
CPT/HCPCS: 70553; A9585

== ENCOUNTER → 2023-01-24 | Outpatient (CLI) | payer MEDICARE ==
[2023-01-24 17:13] LABS: Blood Urea Nitrogen 15.6 mg/dL (9.0-27.0); Carbon Dioxide 26.7 mmol/L (21.6-31.8); Chloride 105 mmol/L (96-109); Sodium 141 mmol/L (135-145)
[2023-01-24 17:21] LABS: HCT 44.9 % (37.2-46.3); HGB 14.8 d/dL (12.0-15.0); MCH 29.6 pg (27.0-32.0); MCV 89.8 FL (80.0-97.0); Mean Platelet Volume 10.6 FL (9.5-12.2); NRBC Per 100 WBC 0 X 10*3/uL (0.00-0.01); Platelet Count 219 X 10*3/uL (140-440); RDW 13.8 % (11.5-14.5); WBC 7.19 X 10*3/uL (4.50-10.00)
== END | disposition home or self-care (01) ==
LOC: LABPAT 09:56
PROVIDERS: ATTEND Internal Medicine Interventional Cardiology
DX: Z01.812 Encounter for preprocedural laboratory examination (principal); R06.02 Shortness of breath
CPT/HCPCS: 36415; 80051; 82565; 84520; 85027

== ENCOUNTER 2023-01-31 08:32 | Day surgery (SDC) | payer MEDICARE ==
[2023-01-23 15:25] VITALS: BMI 33.7
[~2023-01-31 08:32] MED LIST changes: +ALPRAZolam 0.25 MG TAB PO PRN; +ALPRAZolam 0.5 MG TAB PO PRN; +ASPIRIN 325 MG TAB PO STA; -LACTATED RINGERS 1,000 ML IV SCH; +NITROGLYCERIN SL TABS 0.4 MG TAB SUBLINGUAL PRN
[2023-01-31] MEDS ORDERED: SODIUM CHLORIDE 0.9% 1,000 ML IV ONE (08:56)
[2023-01-31] MEDS ORDERED: VERAPAMIL 2.5 MG/ML 2 ML AMP ONE (12:28)
[2023-01-31] MEDS ORDERED: LIDOCAINE 1% INJ 10MG/ML (5 ML VIAL-PF) SQ ONE (12:44)
[2023-01-31] MEDS ORDERED: MIDAZOLAM 2 MG/2 ML VIAL IVP ONE (12:45)
[2023-01-31] MEDS ORDERED: VERAPAMIL SYRINGE (5 MG/10 ML) INTRAARTER ONE (12:46)
[2023-01-31] MEDS ORDERED: HEPARIN SODIUM 1,000 UN/ML (10ML VL) IV ONE (12:48)
[2023-01-31] MEDS ORDERED: PRASUGREL 10 MG TAB PO ONE (13:15)
[2023-01-31] MEDS: NITROGLYCERIN 1000MCG/10ML SYRINGE INTRACORON ONE ×2 (13:21→13:22)
[2023-01-31] MEDS ORDERED: IOPAMIDOL-300 100ML BTL INJ ONE (13:26)
[2023-01-31] MEDS ORDERED: NAPROXEN 250 MG TAB PO PRN (13:37)
[2023-01-31] MEDS ORDERED: ATROPINE SULFATE 0.1 MG/ML 10ML SYRINGE IV PRN (13:37)
[2023-01-31] MEDS ORDERED: ZOLPIDEM 5 MG TAB PO PRN (13:37)
[2023-01-31] MEDS ORDERED: NITROGLYCERIN SL TABS 0.4 MG TAB SUBLINGUAL PRN (13:37)
[2023-01-31] MEDS ORDERED: MAG HYDROX/AL HYDROX/SIMETH 30 ML CUP PO PRN (13:37)
[2023-01-31] MEDS ORDERED: RX INFO: IV CONTRAST WAS GIVEN 1 EACH MISC MISCELLANE PRN (13:37)
[2023-01-31] MEDS ORDERED: PANTOPRAZOLE 40 MG TABLET PO PRN (13:37)
[2023-01-31] MEDS ORDERED: SODIUM CHLORIDE 0.9% 1,000 ML in EMPTY BAG 1 BAG IV SCH (13:45)
--- NOTE | 2023-01-31 13:46 | P.PCN ---
Date of Procedure: 01/31/23 Operative Findings: CARDIAC CATHETERIZATION AND PERCUTANEOUS CORONARY INTERVENTION PERFORMING PHYSICIAN: Andrew Funk MD, [facility] PROCEDURE PERFORMED: 1. Selective right and left coronary angiogram 2. Successful stenting of distal RCA using 3.5 x 15 mm Xience MARCELINO with an excellent angiographic results 3. Adjunctive use of Doppler wire with iFR and intravascular imaging 4. Ultrasound guided access of the right radial artery INDICATION: This is a 67-year-old female patient who continues to be symptomatic internal of shortness of breath with exertion which was concerning for severe underlying coronary artery disease and she does have multiple risk factors. She does have hypertension and dyslipidemia and carotid atherosclerosis. COMPLICATION: None APPROACH: Right radial artery LEVEL OF SEDATION: Moderate with the sedation time off 43 minutes PROCEDURE DESCRIPTION: After obtaining an informed consent the patient was brought to the cardiac microbiological laboratory technician. The right radial artery was cannulated using micropuncture technique under ultrasound guidance and the micropuncture wire passed easily then I placed a 6- Faroese sheath. I gave the patient 2 mg of verapamil intra-arterial and 5000 use of heparin intravenous. Selective right and left coronary angiogram performed using JR4 and JL 3.5 catheters. After that I did Doppler wire measurement of the RCA and then intervention on the RCA. The procedure was completed was no complication SELECTIVE CORONARY ANGIOGRAM: The right coronary artery: Large caliber vessel and a dominant vessel and calcified vessel. The proximal RCA has mild to moderate disease only. The mid RCA has intermediate lesion. The distal RCA has an intermediate to severe lesion. The RCA bifurcates into PDA and PLV branches both appeared to have mild disease only. We did Doppler measurement lesion across the distal lesion with pulled back to the mid lesion. The distal lesion was he was directly significant. Left main: Has mild disease only. Bifurcates into an LCx and LAD The left circumflex: Large caliber vessel and nondominant vessel. The LCx appeared to have mild disease only. It gives rises into 3 obtuse marginal branches appeared to have mild diffuse disease only. The left anterior descending artery: The proximal LAD appeared to have mild disease only. The mid LAD has mild disease as well and gives rises into a diagonal branch which seems to be angiographically normal. PCI OF THE RCA: Anticoagulation was initiated using heparin with continuous ACT monitoring. After zeroing the Doppler wire and equalizing between the Doppler wire and guiding catheter I did engage the right coronary artery. I did use JR 4 guiding catheter. After that I did wire the RCA were the Doppler wire was advanced all the way distal RCA distal to the distal lesion. The iFR came in to be at 0.83. I pulled back the wire to be distal to the mid lesion and proximal to distal lesion and the iFR was 0.90. At that point I decided to intervene on the distal lesion only. Anticoagulation continues using heparin with ACT monitoring. Predilatation was performed using 3 mm balloon after intravascular ultrasound was performed and showed minimally calcified distal RCA with a diameter around 3.5 mm. After that I deployed a 3.5 x 15 mm stent with adjunctive use of guide liner because the stent would not cross from the proximal to the distal RCA. The stent was positioned under fluoroscopy guidance and deployed under fluoroscopy guidance with the final angiogram showed good angiographic results and the procedure was completed was no complication CONCLUSION: 1. Intermediate disease involving the proximal and mid and distal RCA. Doppler wire measurements was performed was pulled back. The distal lesion was only hemodynamic history significant lesion. 2. I did perform successful PCI of the distal lesion with a good angiographic results POSTPROCEDURE MANAGEMENT: 1. Dual antiplatelet therapy using aspirin and Plavix for 6 month 2. Aggressive cholesterol control 3. Follow-up with the patient
[2023-01-31] MEDS: SODIUM CHLORIDE 0.9% 1,000 ML in EMPTY BAG 1 BAG IV SCH ×2 (19:58→21:22)
[2023-01-31] MEDS ORDERED: SERTRALINE 100 MG TAB PO SCH (21:00)
[2023-01-31] MEDS ORDERED: ATORVASTATIN 80 MG TAB PO SCH (21:00)
[2023-01-31] MEDS ORDERED: amLODIPine 10 MG TAB PO SCH (21:00)
[2023-02-01 03:50] VITALS: RESP 16
[2023-02-01 08:55] LABS: African American GFR (CKD) >90 (>60 ml/min/1.73 sqM); Non-African American GFR(CKD) 79 (>60 ml/min/1.73 sqM)
[2023-02-01] MEDS ORDERED: lisinopriL 20 MG TAB PO SCH (09:00)
[2023-02-01] MEDS ORDERED: PRASUGREL 10 MG TAB PO SCH (09:00)
[2023-02-01] MEDS ORDERED: CHOLECALCIFEROL 25 MCG (1000 IU) TABLET PO SCH (09:00)
--- NOTE | 2023-02-01 10:14 | P.DS ---
Providers Attending physician: Andrew Funk Consults: 01/31/23 13:38 Consult Physician Routine Consulting Provider: [facility] Consult Reason/Comments: Post Interventional patient Do you want consulting provider notified?: Already Contacted Primary care physician: [facility] Course: The patient is a 67-year-old female patient who underwent yesterday a heart catheterization and stenting of the right coronary artery. The procedure was performed with a good angiographic results and with no complication. She was seen and evaluated this morning. She is asymptomatic and hemodynamically stable. The patient is going to be discharged home on dual antiplatelet therapy and I'll follow-up with the patient next week in the office Plan - Discharge Summary Discharge Rx Participant: No New Discharge Prescriptions: No Action amLODIPine BESYLATE [Norvasc] 10 mg PO HS Sertraline HCl [Zoloft] 100 mg PO HS lisinopriL [Prinivil] 20 mg PO QAM Omeprazole [PriLOSEC] 20 mg PO DAILY PRN PRN Reason: Allergy Symptoms Naproxen Sodium [Aleve] 440 mg PO Q6H PRN PRN Reason: Pain Cholecalciferol (Vitamin D3) [Vitamin D3] 2,000 unit PO DAILY Discharge Medication List Sertraline HCl [Zoloft] 100 mg PO HS 02/09/16 [History] amLODIPine BESYLATE [Norvasc] 10 mg PO HS 02/09/16 [History] lisinopriL [Prinivil] 20 mg PO QAM 02/09/16 [History] Omeprazole [PriLOSEC] 20 mg PO DAILY PRN 08/10/16 [History] Cholecalciferol (Vitamin D3) [Vitamin D3] 2,000 unit PO DAILY 12/09/16 [History] Naproxen Sodium [Aleve] 440 mg PO Q6H PRN 12/09/16 [History] Follow up Appointment(s)/Referral(s): Andrew Funk MD [STAFF PHYSICIAN] - 1 Week (APPOINTMENT MADE ON January @ 9:00AM ) Patient Instructions/Handouts: Moderate Sedation (DC), After Radial Heart Catheterization (GEN) Activity/Diet/Wound Care/Special Instructions: *NO LIFTING, PUSHING, OR PULLING ANYTHING OVER 5 POUNS FOR 5 DAYS *NO DRIVING FOR 3 DAYS *YOU CAN REMOVE YOUR DRESSING AND SHOWER TOMORROW BUT DO NOT SUBMERSE YOUR PUNCTURE SITE IN WATER FOR A FEW DAYS TO PREVENT INFECTION - SO NO TUB BATHS, POOLS, HOT TUBS, DISHES...ETC *ANY SIGNS OF BLEEDING (HARDNESS, SWELLING, OR EXCESSIVE BRUISING) HOLD DIRECT PRESSURE ON YOUR PUNCTURE SITE AND COME TO THE NEAREST EMERGENCY ROOM TO GET YOUR PUNCTURE SITE LOOKED AT - DO NOT DRIVE YOURSELF! EITHER CALL EMS OR HAVE SOMEONE DRIVE YOU!
[2023-02-01 10:35] VITALS: BP 159/88; PULSE 72; TEMP 97.4
== END 2023-02-01 13:15 | disposition home or self-care (01) ==
LOC: CATHCVL 08:32 → 3SCARD 13:30 → CATHCVL 02-01 13:15
PROVIDERS: ATTEND Internal Medicine Interventional Cardiology
DX: I65.29 Occlusion and stenosis of unspecified carotid artery (principal); I10 Essential (primary) hypertension; F17.210 Nicotine dependence, cigarettes, uncomplicated; E78.5 Hyperlipidemia, unspecified; Z82.49 Family history of ischemic heart disease and other diseases of the circulatory system; Z79.899 Other long term (current) drug therapy
CPT/HCPCS: 92978; 93454; 93799; 82565; C9600; C1769 ×3; C1887 ×2; C1894; C1725; C1753; C1874; J2250; J2001; J1644; Q9967; J2305

== ENCOUNTER → 2023-06-25 | Outpatient (CLI) | payer MEDICARE ==
[2023-06-25 15:12] LABS: Basophils # (A) 0.09 X 10*3/uL (0.00-0.10); Basophils % (A) 1.4 %; Eosinophils # (A) 0.09 X 10*3/uL (0.04-0.35); Eosinophils % (A) 1.4 %; HCT 43.6 % (37.2-46.3); HGB 14.2 g/dL (12.0-15.0); MCH 28.9 pg (27.0-32.0); MCHC 32.6 g/dL (32.0-37.0); MCV 88.8 FL (80.0-97.0); Mean Platelet Volume 10.8 FL (9.5-12.2); Monocytes # (A) 0.41 X 10*3/uL (0.20-1.00); Monocytes % (A) 6.5 %; NRBC Per 100 WBC 0 X 10*3/uL (0.00-0.01); Neutrophils # (A) 4.14 X 10*3/uL (1.80-7.70); Neutrophils % (A) 66.2 %; Platelet Count 227 X 10*3/uL (140-440); RBC 4.91 X 10*6/uL (4.10-5.20); RDW 14.6 % (11.5-14.5); WBC 6.26 X 10*3/uL (4.50-10.00)
[2023-06-25 15:52] LABS: ALT 33 U/L (8-44); AST 36 U/L (13-35); Albumin 4.2 g/dL (3.8-4.9); Albumin/Globulin Ratio 1.62 Ratio (1.60-3.17); Alkaline Phosphatase 105 U/L (41-126); BUN/Creat Ratio 18.89 Ratio (12.00-20.00); Calcium 9.6 mg/dL (8.7-10.3); Carbon Dioxide 23.7 mmol/L (21.6-31.8); Chloride 106 mmol/L (96-109); Globulin 2.6 g/dL (1.6-3.3); Glucose 101 mg/dL (70-110); Potassium 4.4 mmol/L (3.5-5.5); Sodium 141 mmol/L (135-145); Total Bilirubin 0.3 mg/dL (0.3-1.2); Total Protein 6.8 g/dL (6.2-8.2)
[2023-06-25 17:56] LABS: Erythrocyte Sedimentation Rate 30 mm/Hr (0-30)
[2023-06-26 22:42] LABS: Gliadin AB IgA, Deaminated Negative (Negative); Gliadin AB IgA, Unit 1.3 U/mL; Gliadin AB IgG, Deaminated Negative (Negative); Gliadin AB IgG, Unit <0.4 U/mL
== END | disposition home or self-care (01) ==
LOC: LABWHC1 10:05
PROVIDERS: ATTEND Nurse Practitioner Family
DX: K52.9 Noninfective gastroenteritis and colitis, unspecified (principal); R89.4 Abnormal immunological findings in specimens from other organs, systems and tissues
CPT/HCPCS: 36415; 80053; 83516; 85025; 85652; 86140

== ENCOUNTER → 2023-08-28 | Outpatient (CLI) | payer MEDICARE ==
--- NOTE | 2023-08-29 10:58 | XR ---
EXAMINATION TYPE: XR thoracic spine 2V DATE OF EXAM: 08/28/2023 12:56 PM CLINICAL INDICATION:Female, 67 years old with history of M54.9 Mid back pain; COMPARISON: 05/17/2018. TECHNIQUE: XR thoracic spine 2V views of the spine in Frontal and lateral projections. FINDINGS: Mild scoliosis changes throughout the spine with degeneration with osteophyte. No evidence of acute f racture. There is scattered multilevel disk space narrowing without loss of vertebral body height. S cattered osteophyte formation along the anterior and lateral aspects of the vertebral bodies. Neural foramen are patent given limitations of this exam. Spinal canal appears patent. IMPRESSION: No acute osseous pathology. Mild scoliosis with mild to moderate degeneration changes of the spine.
== END | disposition home or self-care (01) ==
LOC: RADXRMAIN 12:13
PROVIDERS: ATTEND Family Medicine
DX: M47.814 Spondylosis without myelopathy or radiculopathy, thoracic region (principal); M41.84 Other forms of scoliosis, thoracic region
CPT/HCPCS: 72070

== ENCOUNTER → 2023-12-27 | Outpatient (CLI) | payer MEDICARE ==
--- NOTE | 2024-01-01 22:33 | CTL ---
EXAMINATION TYPE: CT Low Dose Lung DATE OF EXAM ORDERED: 12/27/2023 HISTORY: Smoking history. Lung cancer screening CT DLP: 76.[address] CTDI: 2.4 mGy Automated exposure control for dose reduction was used. SCREENING VISIT: Initial COMPARISON: None TECHNIQUE: Low dose computed tomography scan was performed through the chest at 1 mm thick sections a nd reconstructed images in the coronal plane at [address] DIAGNOSTIC QUALITY: Satisfactory FINDINGS: LUNG NODULES: None. LUNGS: COPD: Severity: None Fibrosis: Severity: None Lymph nodes: None Other findings: None RIGHT PLEURAL SPACE: Effusion: None Calcification: None Thickening: None Pneumothorax: None LEFT PLEURAL SPACE: Effusion: None Calcification: None Thickening: None Pneumothorax: None HEART: Other: Ascending thoracic aorta at the level the main pulmonary artery measures 3.1 cm. The main pul monary artery at the bifurcation measures 2.7 cm. Heart Size: Normal Coronary calcification: Moderate to severe Pericardial effusion: None OTHER FINDINGS: Upper abdomen: Normal Bony thorax: Normal Supraclavicular region: Normal IMPRESSION: Benign findings or appearance FOLLOW UP CT CHEST RECOMMENDATION: Follow-up low-dose CT chest one year CT LUNG RAD: Lung-Rad 2 Benign Appearance or Behavior
--- NOTE | 2024-01-07 09:23 | MR ---
EXAMINATION TYPE: MR lumbar spine wo con DATE OF EXAM: 12/27/2023 COMPARISON: 03/09/2020 HISTORY: Lower back pain with LLE radiculopathy x 6 mos, no trauma. CONTRAST: 0 mL intravenous . TECHNIQUE: Multiplanar, multisequence images of the lumbar spine were acquired. FINDINGS: L5-S1: There is loss of disc height at this level. No significant spinal canal stenosis evident. Some ligamentum flavum laxity is present. There is moderate right and severe left foraminal stenosis L4-L5: There is loss of disc height is normal. Facet hypertrophy and ligamentum flavum laxity greater on the left is present. No spinal canal stenosis present. Moderate right and severe left foraminal s tenosis is present. L3-L4: No significant disc bulge or disc herniation. No spinal canal stenosis. No foraminal stenosi s. Degenerative disc changes are present. Mild facet hypertrophy is present.. L2-L3: Broad-based disc bulges mild anterior thecal sac compression. No AP spinal canal stenosis is p resent. Moderate to severe right and moderate left foraminal narrowing is present. Degenerative disc changes and vacuum disc phenomenon is present. Some endplate changes appear to be present L1-L2: No significant disc bulge or disc herniation. No spinal canal stenosis. No foraminal stenosi s. Degenerative disc changes with loss of disc height is present. Mild facet hypertrophy is present greater on the right. Loss of disc height is present. T12-L1: No significant disc bulge or disc herniation. No spinal canal stenosis. No foraminal stenos is. IMPRESSION: 1. Multilevel degenerative disc changes including disc desiccation throughout the lumbar spine and wi th disc space narrowing present at L4-5 and L5-S1. 2. Moderate to severe right foraminal stenosis L2-3. Moderate right and severe left foraminal stenosi s present at L5-S1 and L4-5.
== END | disposition home or self-care (01) ==
LOC: RADMRIMAIN 16:17
PROVIDERS: ATTEND Family Medicine
DX: Z12.2 Encounter for screening for malignant neoplasm of respiratory organs (principal); M47.26 Other spondylosis with radiculopathy, lumbar region; M47.817 Spondylosis without myelopathy or radiculopathy, lumbosacral region; M48.061 Spinal stenosis, lumbar region without neurogenic claudication; M51.16 Intervertebral disc disorders with radiculopathy, lumbar region; M51.37 Other intervertebral disc degeneration, lumbosacral region
CPT/HCPCS: 71271; 72148

== ENCOUNTER → 2024-01-23 | Outpatient (CLI) | payer MEDICARE ==
--- NOTE | 2024-03-18 11:08 | XR ---
EXAMINATION TYPE: XR femur LT DATE OF EXAM: 03/14/2024 10:12 AM CLINICAL INDICATION: Female, 68 years old with history of ABNORMAL MRI; pain COMPARISON: None TECHNIQUE: XR femur LT examined in Frontal and lateral projections. FINDINGS: No evidence of acute osseous pathology, joint dislocation, or soft tissue swelling. Mild o steophyte formations of the superior acetabulum. Mild joint space narrowing. IMPRESSION: 1. No acute osseous pathology. 2. Mild degeneration changes of the hip. [facility], , 03/18/2024 11:06 AM
--- NOTE | 2024-03-18 11:09 | XR ---
EXAMINATION TYPE: XR Hip 2 view LT DATE OF EXAM: 03/14/2024 10:11 AM CLINICAL INDICATION: Female, 68 years old with history of ABNORMAL MRI; pain COMPARISON: None. TECHNIQUE: XR Hip Limited LT; hip was examined in the frontal and lateral projections FINDINGS: No evidence for acute process, joint dislocation or significant soft tissue swelling. Osteo phyte formation of the superior acetabulum of the hip. There is mild joint space narrowing. IMPRESSION: No MRI hip available for comparison. 1. No evidence for acute process. 2. Mild hip osteoarthrosis. [facility], , 03/18/2024 11:05 AM [facility], , 03/18/2024 11:06 AM
== END | disposition home or self-care (01) ==
LOC: RADXRMAIN 08:27
PROVIDERS: ATTEND Family Medicine
DX: M16.12 Unilateral primary osteoarthritis, left hip (principal)
CPT/HCPCS: 73501